=== PATIENT | female | born 1955 | race Hispanic/Latino ===

== ENCOUNTER 2017-11-20 10:52 | Emergency (ER) | payer MEDICARE ==
[2017-11-20 11:38] VITALS: RESP 18; O2SAT 95; BMI 60.5
--- NOTE | 2017-11-20 11:57 | ED PDOC ---
Arrival/HPI - General Chief Complaint: Lower Extremity Problem/Injury Time Seen by Provider: 11/20/17 11:41 Historian: Patient - History of Present Illness Narrative History of Present Illness (Text): 11/20/17 11:50 A 62 year old female, whose past medical history includes DM, presents to the emergency department for further evaluation of a right lower extremity injury and chronic bilateral knee pain. The patient states that she stubbed her right foot and her toenail fell off of the 2nd toe. She states that it became dark in color and she became concerned since she is diabetic. The patient notes that her right, 2nd toe appears to be more swollen. The patient also complains of bilateral knee pain which she has been experiencing for almost a year. She states that she has been experiencing difficulty going up and down stairs. The patient states that she took Ibuprofen with mild relief of her symptoms. She reports that she has not been taking her medication because she ran out and does not have a PMD. The patient denies fevers, chills, headache, dizziness, sore throat, cough, chest pain, shortness of breath, dyspnea on exertion, abdominal pain, nausea, vomiting, diarrhea, neck/back pain, urinary/bowel changes or any other complaint. Time/Duration: Other (1 day) Symptom Onset: Sudden Symptom Course: Unchanged Activities at Onset: Rest, Light Context: Home Past Medical History - Provider Review Nursing Documentation Reviewed: Yes - Infectious Disease Hx of Infectious Diseases: None - Tetanus Immunization Tetanus Immunization: Up to Date - Cardiac Hx Cardiac Disorders: Yes Hx Hypertension: Yes - Pulmonary Hx Respiratory Disorders: No - Neurological Hx Neurological Disorder: No - HEENT Hx HEENT Disorder: No - Renal Hx Renal Disorder: No - Endocrine/Metabolic Hx Diabetes Mellitus Type 2: Yes - Hematological/Oncological Hx Blood Disorders: No - Integumentary Hx Dermatological Disorder: No - Musculoskeletal/Rheumatological Hx Musculoskeletal Disorders: No - Gastrointestinal Hx Gastrointestinal Disorders: No - Genitourinary/Gynecological Hx Genitourinary Disorders: No - Psychiatric Hx Depression: Yes Hx Emotional Abuse: No Hx Physical Abuse: No Hx Substance Use: No - Surgical History Hx Section: Yes Other/Comment: cyst in right axilla removed - Anesthesia Hx Anesthesia: Yes Hx Anesthesia Reactions: No Hx Malignant Hyperthermia: No - Suicidal Assessment Feels Threatened In Home Enviroment: No Family/Social History - Physician Review Nursing Documentation Reviewed: Yes Family/Social History: No Known Family HX Smoking Status: Never Smoked Hx Alcohol Use: No Hx Substance Use: No Hx Substance Use Treatment: No Allergies/Home Meds Allergies/Adverse Reactions: Allergies No Known Allergies Allergy (Verified 11/20/17 11:30) Home Medications: Home Meds Medication Instructions Recorded Confirmed Escitalopram [Lexapro] 20 mg PO DAILY 08/14/12 12/23/15 Benztropine 1 mg PO DAILY 12/04/12 12/23/15 fluPHENAZine 5 mg PO HS 12/04/12 12/23/15 Alprazolam [Xanax] 0.5 mg PO HS 12/15/15 12/23/15 Insulin Human (NPH)/Regular 60 units SC AMHS 12/15/15 12/23/15 [Novolin 70/30 (70/30 units/ml) 10 ml] Review of Systems - Physician Review All systems were reviewed & negative as marked: Yes - Review of Systems Constitutional: absent: Fevers ENT: absent: Sore Throat Respiratory: absent: SOB, Cough Cardiovascular: absent: Chest Pain, CAM Gastrointestinal: absent: Abdominal Pain, Stool Changes, Diarrhea, Nausea, Vomiting Genitourinary Female: absent: Urine Output Changes Musculoskeletal: Other (Bilateral knee pain. Right 2nd toe evaluation s/p injury). absent: Back Pain, Neck Pain Neurological: absent: Headache, Dizziness Physical Exam Vital Signs Reviewed: Yes Vital Signs Temp Pulse Resp BP Pulse Ox 11/20/17 11:31 98.3 F 76 18 139/65 95 Temperature: Afebrile Blood Pressure: Normal Pulse: Regular Respiratory Rate: Normal Appearance: Positive for: Well-Appearing, Non-Toxic, Comfortable Pain Distress: None Mental Status: Positive for: Alert and Oriented X 3 Finger Stick Blood Glucose: 308 - Systems Exam Head: Present: Atraumatic, Normocephalic Pupils: Present: PERRL Extroacular Muscles: Present: EOMI Conjunctiva: Present: Normal Mouth: Present: Moist Mucous Membranes Neck: Present: Normal Range of Motion Respiratory/Chest: Present: Clear to Auscultation, Good Air Exchange. No: Respiratory Distress, Accessory Muscle Use Cardiovascular: Present: Regular Rate and Rhythm, Normal S1, S2. No: Murmurs Abdomen: No: Tenderness, Distention, Peritoneal Signs Back: Present: Normal Inspection Upper Extremity: Present: Normal Inspection. No: Cyanosis, Edema Lower Extremity: Present: Other (Right 2nd toe mild abrasion noted to eponychial fold. No toe nail noted. Non-tender to palpation. No ulceration. No errythema. No crepitus.). No: Edema Neurological: Present: GCS=15, CN II-XII Intact, Speech Normal Skin: Present: Warm, Dry, Normal Color. No: Rashes Psychiatric: Present: Alert, Oriented x 3, Normal Insight, Normal Concentration Medical Decision Making ED Course and Treatment: 11/20/17 12:04 Impression: A 62 year old female presents to the emergency department for further evaluation of a right 2nd toe injury. She also complained of chronic bilateral knee pain. N/V intact in all extremities. No deep ulcer noted. No erythema. No crepitus. Plan: -- Labs -- Right Foot/ Bilateral Knee X- Rays -- Reassess and disposition Prior Visits: Notes and results from previous visits were reviewed. Progress Notes: 11/20/17 13:23: Labs revised. Mild glucose elevation at 375. No gap. Non- DKA. Non hyperosmolar. Pendng xray 11/20/17 14:37 Xrays unremarkable, will rx for diabetic abrasion, to follow up outpt. PROCEDURE: Bilateral knees Dictator : Lucien Quezada MD Report Date : 11/20/2017 13:54:00 IMPRESSION: Joint space narrowing and osteophyte formation in the medial compartment of the right knee PROCEDURE: Right Foot Radiographs. Dictator : Lucien Quezada MD Report Date : 11/20/2017 13:56:49 IMPRESSION: No acute findings - Scribe Statement The provider has reviewed the documentation as recorded by the Scribe Joy Acosta Provider Scribe Attestation: All medical record entries made by the Scribe were at my direction and personally dictated by me. I have reviewed the chart and agree that the record accurately reflects my personal performance of the history, physical exam, medical decision making, and the department course for this patient. I have also personally directed, reviewed, and agree with the discharge instructions and disposition. Disposition/Present on Arrival - Present on Arrival Any Indicators Present on Arrival: No History of DVT/PE: No History of Uncontrolled Diabetes: No Urinary Catheter: No History of Decub. Ulcer: No History Surgical Site Infection Following: None - Disposition Have Diagnosis and Disposition been Completed?: Yes Diagnosis: Foot abrasion Disposition: HOME/ ROUTINE Disposition Time: 14:36 Condition: GOOD Discharge Instructions (ExitCare): Skin Abrasions Additional Instructions: JAD BOSS, thank you for letting us take care of you today. Your provider was Rachid Cesar and you were treated for diabetic / foot injury and toe. The emergency medical care you received today was directed at your acute symptoms. If you were prescribed any medication, please fill it and take as directed. It may take several days for your symptoms to resolve. Return to the Emergency Department if your symptoms worsen, do not improve, or if you have any other problems. Please contact your doctor or call one of the physicians/clinics you have been referred to that are listed on the Patient Visit Information form that is included in your discharge packet. Bring any paperwork you were given at discharge with you along with any medications you are taking to your follow up visit. Our treatment cannot replace ongoing medical care by a primary care provider outside of the emergency department. Thank you for allowing the [facility] team to be part of your care today. If you had an X-Ray or CT scan: A Radiologist will review the ED reading if any change in treatment is needed we will contact you. If you had a blood, urine, or wound culture: It will take several days for the results, if any change in treatment is needed we will contact you. If you had an STI test: It will take 48 hours for the results. Please call after 1 week if you have not heard back. Prescriptions: Doxycycline Hyclate 100 mg PO BID 14 Days #28 capsule Referrals: Tanesha Iqbal MD [Medical Doctor] - Follow up with primary Forms: [employer] (Moroccan)
[2017-11-20 12:47] LABS: BASO # 0.03 K/mm3 (0.0-2.0); BASO % 0.3 % (0.0-3.0); EOS # 0.1 (0.0-0.7); EOS % 1.4 % (1.5-5.0); GRAN # 6.18 (1.4-6.5); GRAN % 69.6 % (50.0-68.0); HEMOGLOBIN 12.3 g/dL (12.0-16.0); MEAN CELL VOLUME 77.7 fl (80.0-105.0); MEAN CORPUSCULAR HEMOGLOBIN 24.9 pg (25.0-35.0); MEAN CORPUSCULAR HGB CONC 32.1 g/dl (31.0-37.0); MEAN PLATELET VOLUME 10.9 fl (7.0-11.0); MONO # 0.5 (0.1-0.6); MONO % 5.7 % (1.0-6.0); RBC 4.93 10^6/uL (3.5-6.1); RED CELL DISTRIBUTION WIDTH 13.7 % (11.5-14.5); WHITE BLOOD COUNT 8.9 10^3/ul (4.5-11.0)
[2017-11-20 13:07] LABS: ALB/GLOB RATIO 1.2 (1.1-1.8); ALBUMIN 4.2 g/dL (3.0-4.8); ALT/SGPT 25 U/L (7-56); AST/SGOT 29 U/L (14-36); BLOOD UREA NITROGEN 10 mg/dL (7-21); CALCIUM 9.2 mg/dL (8.4-10.5); GFR NON-AFRICAN AMERICAN > 60
--- NOTE | 2017-11-20 13:58 | RAD ---
Date of service: 11/20/2017 PROCEDURE: Bilateral knees HISTORY: knee pain, c COMPARISON: TECHNIQUE: Two views of each knee FINDINGS: There is joint space narrowing and osteophyte formation in the medial compartment of the right knee. The left knee is unremarkable. The patellofemoral joints are unremarkable IMPRESSION: Joint space narrowing and osteophyte formation in the medial compartment of the right knee
--- NOTE | 2017-11-20 14:01 | RAD ---
Date of service: 11/20/2017 PROCEDURE: Right Foot Radiographs. HISTORY: stub toe COMPARISON: None. FINDINGS: BONES: The 2nd toe is unremarkable JOINTS: There is joint space narrowing in the 1st PIP joint SOFT TISSUES: Normal. OTHER FINDINGS: None. IMPRESSION: No acute findings
[2017-11-20 14:09] VITALS: BP 141/75; PULSE 72; TEMP 98
== END 2017-11-20 14:50 | disposition home or self-care (01) ==
LOC: ED 10:52
DX: S90.811A Abrasion, right foot, initial encounter (principal); W22.8XXA Striking against or struck by other objects, initial encounter; Y92.9 Unspecified place or not applicable; E11.9 Type 2 diabetes mellitus without complications

== ENCOUNTER 2018-06-13 19:42 | Emergency (ER) | payer MEDICARE ==
[2018-06-13 19:43] VITALS: BMI 43.5
[2018-06-13 20:12] VITALS: TEMP 98.6
[2018-06-13 21:27] LABS: URINE BILIRUBIN NEGATIVE (NEGATIVE); URINE BLOOD NEGATIVE (NEGATIVE); URINE GLUCOSE (UA) NEGATIVE (NEGATIVE); URINE LEUKOCYTE ESTERASE NEGATIVE Leu/uL (NEGATIVE); URINE UROBILINOGEN 0.2 E.U./dL (<1 E.U./dL)
[2018-06-13 21:28] LABS: BASO # 0.04 K/mm3 (0.0-2.0); BASO % 0.4 % (0.0-3.0); EOS # 0.1 (0.0-0.7); EOS % 1.5 % (1.5-5.0); HEMOGLOBIN 12.7 g/dL (12.0-16.0); LYMPH # 1.8 (1.2-3.4); LYMPH % 19.6 % (22.0-35.0); MEAN CELL VOLUME 77.1 fl (80.0-105.0); MEAN CORPUSCULAR HEMOGLOBIN 24.6 pg (25.0-35.0); MEAN CORPUSCULAR HGB CONC 31.9 g/dl (31.0-37.0); MEAN PLATELET VOLUME 10.4 fl (7.0-11.0); MONO # 0.4 (0.1-0.6); MONO % 4.4 % (1.0-6.0); RBC 5.16 10^6/uL (3.5-6.1); RED CELL DISTRIBUTION WIDTH 14.4 % (11.5-14.5); WHITE BLOOD COUNT 9.1 10^3/uL (4.5-11.0)
[2018-06-13 21:29] LABS: URINE APPEARANCE CLEAR (CLEAR); URINE COLOR YELLOW (YELLOW)
[2018-06-13 21:30] LABS: URINE PROTEIN NEGATIVE mg/dL (<30 mg/dL)
[2018-06-13 21:36] LABS: ALB/GLOB RATIO 1.2 (1.1-1.8); ALBUMIN 4.3 g/dL (3.0-4.8); ALT/SGPT 14 U/L (7-56); AST/SGOT 19 U/L (14-36); BLOOD UREA NITROGEN 14 mg/dL (7-21); CALCIUM 9.1 mg/dL (8.4-10.5); GFR NON-AFRICAN AMERICAN > 60
[2018-06-13 21:37] LABS: ACETAMINOPHEN < 10.0 ug/ml (10.0-20.0); SALICYLATE < 1 mg/dL (2.0-20.0)
[2018-06-13 21:54] LABS: BARBITURATES, UR NEGATIVE (NEGATIVE); BENZODIAZEPINES, UR POSITIVE (NEGATIVE); OPIATES, UR NEGATIVE (NEGATIVE); PHENCYCLIDINE, UR NEGATIVE (NEGATIVE)
--- NOTE | 2018-06-13 23:17 | ED PDOC ---
Arrival/HPI <Maverick Santizo - Last Filed: 06/13/18 23:54> - General Historian: Patient - History of Present Illness Narrative History of Present Illness (Text): 06/13/18 23:14 63-year-old female with a history of diabetes and psychiatric disorder presents today brought in psychiatric evaluation. Patient states [facility] went to her house and advised her to come into the hospital. Per the patient someone in her family had told [facility] that they were concerned about her. Patient denies chest pain or shortness of breath. Denies fevers or chills. Denies dizziness or weakness. Patient states she does not know why they told [facility] that she is not taking her medications because she states she has been taking her medications. Patient denies suicidal or homicidal ideations. Patient denies anxiety or depression. <Keturah Martinez - Last Filed: 06/14/18 00:15> - General Chief Complaint: Medical Clearance Time Seen by Provider: 06/13/18 19:43 Past Medical History - Provider Review Nursing Documentation Reviewed: Yes Primary Care Provider: César Santizo - Travel History Have you recently traveled outside [place] w/in the past 3 mons?: No - Infectious Disease Hx of Infectious Diseases: None - Tetanus Immunization Tetanus Immunization: Up to Date - Cardiac Hx Cardiac Disorders: Yes Hx Hypertension: Yes - Pulmonary Hx Respiratory Disorders: No - Neurological Hx Neurological Disorder: No - HEENT Hx HEENT Disorder: No - Renal Hx Renal Disorder: No - Endocrine/Metabolic Hx Diabetes Mellitus Type 2: Yes - Hematological/Oncological Hx Blood Disorders: No - Integumentary Hx Dermatological Disorder: No - Musculoskeletal/Rheumatological Hx Musculoskeletal Disorders: No - Gastrointestinal Hx Gastrointestinal Disorders: No - Genitourinary/Gynecological Hx Genitourinary Disorders: No - Psychiatric Hx Depression: Yes Hx Emotional Abuse: No Hx Physical Abuse: No Hx Substance Use: No - Surgical History Hx Section: Yes Other/Comment: cyst in right axilla removed - Anesthesia Hx Anesthesia: Yes Hx Anesthesia Reactions: No Hx Malignant Hyperthermia: No - Suicidal Assessment Feels Threatened In Home Enviroment: No <Keturah Martinez - Last Filed: 06/14/18 00:15> Family/Social History - Physician Review Nursing Documentation Reviewed: Yes Family/Social History: Unknown Family HX Smoking Status: Never Smoked Hx Alcohol Use: No Hx Substance Use: No Hx Substance Use Treatment: No <Keturah Martinez - Last Filed: 06/14/18 00:15> Allergies/Home Meds <SukhdevMaverick - Last Filed: 06/13/18 23:54> <Keturah Martinez - Last Filed: 06/14/18 00:15> Allergies/Adverse Reactions: Allergies No Known Allergies Allergy (Verified 11/23/17 13:03) Home Medications: Home Meds Medication Instructions Recorded Confirmed Escitalopram [Lexapro] 20 mg PO DAILY 08/14/12 12/23/15 Benztropine 1 mg PO DAILY 12/04/12 12/23/15 fluPHENAZine 5 mg PO HS 12/04/12 12/23/15 Alprazolam [Xanax] 0.5 mg PO HS 12/15/15 12/23/15 Insulin Human (NPH)/Regular 60 units SC AMHS 12/15/15 12/23/15 [Novolin 70/30 (70/30 units/ml) 10 ml] Review of Systems - Review of Systems Constitutional: absent: Fatigue, Fevers Respiratory: absent: SOB, Cough Cardiovascular: absent: Chest Pain, Palpitations Gastrointestinal: absent: Abdominal Pain, Nausea, Vomiting Genitourinary Female: absent: Dysuria, Frequency, Hematuria Musculoskeletal: absent: Arthralgias, Back Pain, Neck Pain Skin: absent: Rash, Pruritis Neurological: absent: Headache, Dizziness Psychiatric: absent: Anxiety, Depression, Suicidal Ideation <ChelsynikitaKeturah - Last Filed: 06/14/18 00:15> Physical Exam Vital Signs Temp Pulse Resp BP Pulse Ox 06/13/18 19:53 98.6 F 79 16 139/77 100 <SukhdevMaverick - Last Filed: 06/13/18 23:54> Vital Signs Reviewed: Yes Vital Signs Temp Pulse Resp BP Pulse Ox 06/13/18 19:53 98.6 F 79 16 139/77 100 Temperature: Afebrile Blood Pressure: Normal Pulse: Regular Respiratory Rate: Normal Appearance: Positive for: Well-Appearing, Non-Toxic, Comfortable Pain Distress: None Mental Status: Positive for: Alert and Oriented X 3 - Systems Exam Head: Present: Atraumatic Mouth: Present: Moist Mucous Membranes Neck: Present: Normal Range of Motion Respiratory/Chest: Present: Clear to Auscultation, Good Air Exchange. No: Respiratory Distress, Accessory Muscle Use Cardiovascular: Present: Regular Rate and Rhythm, Normal S1, S2. No: Murmurs Abdomen: No: Tenderness, Rebound, Guarding Lower Extremity: Present: Normal Inspection. No: CALF TENDERNESS, Swelling, Erythema Neurological: Present: GCS=15, Speech Normal Skin: Present: Warm, Dry, Normal Color. No: Rashes Psychiatric: Present: Alert, Oriented x 3 <Azoia,Keturah T - Last Filed: 06/14/18 00:15> Medical Decision Making - Lab Interpretations Lab Results: Total Bilirubin 0.7 mg/dL (0.2-1.3) 06/13/18 21:10 AST 19 U/L (14-36) 06/13/18 21:10 ALT 14 U/L (7-56) 06/13/18 21:10 Alkaline Phosphatase 90 U/L (38-126) 06/13/18 21:10 Total Protein 7.9 g/dL (5.8-8.3) 06/13/18 21:10 Albumin 4.3 g/dL (3.0-4.8) 06/13/18 21:10 Globulin 3.6 gm/dL 06/13/18 21:10 Albumin/Globulin Ratio 1.2 (1.1-1.8) 06/13/18 21:10 Urine Color Yellow (YELLOW) 06/13/18 21:02 Urine Appearance Clear (CLEAR) 06/13/18 21:02 Urine pH 6.0 (4.7-8.0) 06/13/18 21:02 Ur Specific [place] 1.025 (1.005-1.035) 06/13/18 21:02 Urine Protein Negative mg/dL (<30 mg/dL) 06/13/18 21:02 Urine Glucose (UA) Negative mg/dL (NEGATIVE) 06/13/18 21:02 Urine Ketones Trace mg/dL (NEGATIVE) H 06/13/18 21:02 Urine Blood Negative (NEGATIVE) 06/13/18 21:02 Urine Nitrate Negative (NEGATIVE) 06/13/18 21:02 Urine Bilirubin Negative (NEGATIVE) 06/13/18 21:02 Urine Urobilinogen 0.2 E.U./dL (<1 E.U./dL) 06/13/18 21:02 Ur Leukocyte Esterase Negative Marquez/uL (NEGATIVE) 06/13/18 21:02 - RAD Interpretation Radiology Orders: 06/13/18 21:54 CHEST PORTABLE [RAD] Stat <Maverick Santizo - Last Filed: 06/13/18 23:54> ED Course and Treatment: 06/13/18 23:17 Patient is nontoxic well-appearing in no distress vital signs are stable. CBC WNL CMP glucose 181 Tylenol WNL Salicylate WNL Alcohol level WNL Urine drug screen + benzos UA; wnl cxr: wnl ekg: Normal sinus rhythm at [address] elevations QTC 426 pt is medically cleared for PES evaluation Patient was seen and evaluated by PES screener: TOM pt was cleared psychiatrically for discharge All results and plan discussed with the patient in depth. Patient was advised to follow-up with the [facility], her psychiatrist and her primary care physician within the next 2 days. Patient was advised to be to return if symptoms worsen persist or if new concerning symptoms develop Patient verbalizes understanding of discharge instructions and need for immediate followup. All aspects of this case were discussed the attending of record. Impression: depression Followup with [facility] within the next 2 days follow up with the psychiatrist within the next 2 days Follow-up with primary care physician within the next 2 days Return immediately if symptoms worsen persist or if new concerning symptoms develop - Lab Interpretations Lab Results: Total Bilirubin 0.7 mg/dL (0.2-1.3) 06/13/18 21:10 AST 19 U/L (14-36) 06/13/18 21:10 ALT 14 U/L (7-56) 06/13/18 21:10 Alkaline Phosphatase 90 U/L (38-126) 06/13/18 21:10 Total Protein 7.9 g/dL (5.8-8.3) 06/13/18 21:10 Albumin 4.3 g/dL (3.0-4.8) 06/13/18 21:10 Globulin 3.6 gm/dL 06/13/18 21:10 Albumin/Globulin Ratio 1.2 (1.1-1.8) 06/13/18 21:10 Urine Color Yellow (YELLOW) 06/13/18 21:02 Urine Appearance Clear (CLEAR) 06/13/18 21:02 Urine pH 6.0 (4.7-8.0) 06/13/18 21:02 Ur Specific [place] 1.025 (1.005-1.035) 06/13/18 21:02 Urine Protein Negative mg/dL (<30 mg/dL) 06/13/18 21:02 Urine Glucose (UA) Negative mg/dL (NEGATIVE) 06/13/18 21:02 Urine Ketones Trace mg/dL (NEGATIVE) H 06/13/18 21:02 Urine Blood Negative (NEGATIVE) 06/13/18 21:02 Urine Nitrate Negative (NEGATIVE) 06/13/18 21:02 Urine Bilirubin Negative (NEGATIVE) 06/13/18 21:02 Urine Urobilinogen 0.2 E.U./dL (<1 E.U./dL) 06/13/18 21:02 Ur Leukocyte Esterase Negative Marquez/uL (NEGATIVE) 06/13/18 21:02 - RAD Interpretation Radiology Orders: 06/13/18 21:54 CHEST PORTABLE [RAD] Stat <Keturah Martinez - Last Filed: 06/14/18 00:15> - PA / PACKAGING TECHNICIAN / Resident Statement JEFF has reviewed & agrees with the documentation as recorded. JEFF has examined the patient and agrees with the treatment plan. <Maverick Santizo - Last Filed: 06/13/18 23:54> Disposition/Present on Arrival <Maverick Santizo - Last Filed: 06/13/18 23:54> - Present on Arrival Any Indicators Present on Arrival: No History of DVT/PE: No History of Uncontrolled Diabetes: No Urinary Catheter: No History of Decub. Ulcer: No History Surgical Site Infection Following: None - Disposition Have Diagnosis and Disposition been Completed?: Yes Disposition Time: 00:12 Patient Plan: Discharge <Keturah Martinez - Last Filed: 06/14/18 00:15> - Disposition Diagnosis: Depression Disposition: HOME/ ROUTINE Condition: GOOD Discharge Instructions (ExitCare): Depression, Adult (DC) Additional Instructions: Followup with behavioral health center within the next 2 days follow up with the psychiatrist within the next 2 days Follow-up with primary care physician within the next 2 days Return immediately if symptoms worsen persist or if new concerning symptoms develop Referrals: César Santizo MD [Non-Staff] - Follow up with primary Tanesha Iqbal MD [Medical Doctor] - Follow up with primary Jan Stubbs DO [Staff Provider] - Follow up with primary Zoe Giles MD [Staff Provider] - Follow up with primary Forms: [employer] (Croatian), WORK NOTE
[2018-06-14 00:45] VITALS: BP 131/73; PULSE 72; RESP 15; O2SAT 99
--- NOTE | 2018-06-14 09:09 | RAD ---
Date of service: 06/13/2018 HISTORY: pes eval COMPARISON: 12/04/2012 TECHNIQUE: 1 view obtained. FINDINGS: LUNGS: No active pulmonary disease. PLEURA: No significant pleural effusion identified, no pneumothorax apparent. CARDIOVASCULAR: No aortic atherosclerotic calcification present. Normal cardiac size. No pulmonary vascular congestion. OSSEOUS STRUCTURES: No significant abnormalities. VISUALIZED UPPER ABDOMEN: Normal. OTHER FINDINGS: None. IMPRESSION: No active disease.
--- NOTE | 2018-06-14 13:34 | CARD ---
APPROVED REPORT Date of service: 06/13/2018 EKG Measurement Heart [id number] <Conclusion> Normal sinus rhythm Normal ECG
== END 2018-06-14 00:25 | disposition home or self-care (01) ==
LOC: ED 19:42
DX: F32.9 Major depressive disorder, single episode, unspecified (principal); E11.9 Type 2 diabetes mellitus without complications; I10 Essential (primary) hypertension
CPT/HCPCS: 71045; 80053; 81003; 85025; 90791; 93005; 99282; G0480